=== PATIENT | female | born 1985 | race Asian ===

== ENCOUNTER 2018-06-01 21:04 | Emergency (ER) | payer OTHER ==
[2018-06-01 21:14] VITALS: BP 134/88; PULSE 84; TEMP 98.2; BMI 19.0
[2018-06-01] MEDS ORDERED: CEPHALEXIN MONOHYDRATE 500 MG CAPSULE (UD) ONE (21:15)
[2018-06-01] MEDS ORDERED: CEPHALEXIN MONOHYDRATE 500 MG CAPSULE (UD) PO ONE (21:15)
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
== END 2018-06-01 21:29 | disposition home or self-care (01) ==
LOC: FER 21:04
DX: T65.891A Toxic effect of other specified substances, accidental (unintentional), initial encounter (principal); T26.52XA Corrosion of left eyelid and periocular area, initial encounter; T79.9XXA Unspecified early complication of trauma, initial encounter; Y93.89 Activity, other specified; Y92.89 Other specified places as the place of occurrence of the external cause
CPT/HCPCS: 99282-25